=== PATIENT | female | born 1965 | race Caucasian/White ===

== ENCOUNTER → 2018-03-12 06:00 | Outpatient (CLI) | payer OTHER ==
[~2018-03-12] VITALS: Ht 154.9 cm; Wt 97.1 kg
[~2018-03-12 06:00] MED LIST: AMILODIPINE PO; IBERSARTAN PO
== END | disposition home or self-care (01) ==
LOC: RAD 06:00 → EDSTATUS 03-29 11:07 → SURH 03-29 13:15 → LAB 03-29 15:37 → EDSTATUS 04-05 13:15 → SURH 04-05 13:15
DX: R07.89 Other chest pain (principal); R10.2 Pelvic and perineal pain; I10 Essential (primary) hypertension; J45.998 Other asthma; Z01.818 Encounter for other preprocedural examination; Z01.810 Encounter for preprocedural cardiovascular examination

== ENCOUNTER 2018-07-04 08:55 | Inpatient (IN) | payer OTHER ==
[~2018-07-04] VITALS: Ht 152.4 cm; Wt 99.8 kg
[2018-07-12] MEDS ORDERED: NORVASC2.5 M1 PO (08:13)
[2018-07-12] MEDS ORDERED: AVAPRO300 MG PO (08:13)
[2018-07-15] MEDS ORDERED: CODE1TAB37 PO (09:11)
[2018-07-15] MEDS ORDERED: IBUPROFEN800 MG PO (09:11)
[2018-07-15] MEDS ORDERED: FAMOTIDINE20 MG PO (09:12)
== END 2018-07-15 09:29 | disposition home or self-care (01) | DRG 743 ==
LOC: SURH 07-10 09:45 → OB/GYN 07-12 06:00 → O/R 07-12 06:00 → SURH 07-12 07:00 → OB/GYN 07-12 09:53
PROVIDERS: ADMIT Obstetrics & Gynecology
PROC: 0UT20ZZ Resection of Bilateral Ovaries, Open Approach (ICD-10-PCS; 2018-07-12)
PROC: 0TJB8ZZ Inspection of Bladder, Via Natural or Artificial Opening Endoscopic (ICD-10-PCS; 2018-07-12)
PROC: 0UT90ZZ Resection of Uterus, Open Approach (ICD-10-PCS; principal; 2018-07-12 07:00)
DX: N85.01 Benign endometrial hyperplasia (principal); D25.1 Intramural leiomyoma of uterus; D25.0 Submucous leiomyoma of uterus; I10 Essential (primary) hypertension; N94.89 Other specified conditions associated with female genital organs and menstrual cycle; N83.8 Other noninflammatory disorders of ovary, fallopian tube and broad ligament